=== PATIENT | female | born 1960 | race Caucasian/White ===

== ENCOUNTER 2016-05-20 15:43 | Emergency (ER) | payer OTHER ==
[2016-05-20 15:49] VITALS: BP 96/80
[2016-05-20] MEDS ORDERED: ASPIRIN 81 MG TABLET, CHEWABLE PO ONE (15:53)
[2016-05-20] MEDS ORDERED: ONDANSETRON 4 MG TAB.RAPDIS PO ONE (15:56)
--- NOTE | 2016-05-20 15:59 | ER Document Report ---
ED Medical Screen (RME) - General Stated Complaint: CHEST PAIN,NAUSEA Time seen by provider: 15:56 Mode of Arrival: Wheelchair Information source: Patient - HPI Patient complains to provider of: CHEST PAIN Onset: Just prior to arrival Onset/Duration: Sudden Context: ACUTE ONSET MIDSTERNAL CHEST PAIN, + NAUSEA. SEEN BY PCP THIS AM FOR COUGH. Quality of pain: Pressure Severity: Severe Pain Level: 5 Associated Symptoms: Chest pain, Cough (productive), Hurts to breath, Nausea, Shortness of breath Exacerbated by: Denies Relieved by: Denies Similar symptoms previously: Yes Recently seen / treated by doctor: Yes - Related Data Smoking: Cigarettes Allergies/Adverse Reactions: No Known Allergies Allergy (Verified 05/20/16 15:52) Past Medical History - Immunizations Hx Diphtheria, Pertussis, Tetanus Vaccination: No Physical Exam - Vital signs Vitals: Temp Pulse Resp BP Pulse Ox 97.4 F 64 22 H 96/80 L 97 05/20/16 15:47 05/20/16 15:47 05/20/16 15:47 05/20/16 15:47 05/20/16 15:47 Course - Vital Signs Vital signs: Temp Pulse Resp BP Pulse Ox 97.4 F 64 22 H 96/80 L 97 05/20/16 15:47 05/20/16 15:47 05/20/16 15:47 05/20/16 15:47 05/20/16 15:47
[2016-05-20 16:18] LABS: ABSOLUTE BASOPHILS # (AUTO) 0.1 10^3/uL (0.0-0.2); ABSOLUTE EOSINOPHILS # (AUTO) 0.4 10^3/uL (0.0-0.6); ABSOLUTE LYMPHOCYTES (AUTO) 5.8 10^3/uL (0.5-4.7); ABSOLUTE MONOCYTES (AUTO) 1.4 10^3/uL (0.1-1.4); ABSOLUTE NEUT (AUTO) 7.1 10^3/uL (1.7-8.2); BASOPHILS % (AUTO) 0.5 % (0-2); EOSINOPHILS % (AUTO) 2.6 % (0-6); HEMATOCRIT 43.6 % (36.0-47.0); HEMOGLOBIN 14.7 g/dL (12.0-15.5); HGB HCT DIFFERENCE 0.5; LYMPHOCYTES % (AUTO) 39.1 % (13-45); MEAN CORPUSCULAR HEMOGLOBIN 30.9 pg (27.0-33.4); MEAN CORPUSCULAR HGB CONC 33.8 g/dL (32.0-36.0); MEAN CORPUSCULAR VOLUME 91 fl (80-97); MONOCYTES % (AUTO) 9.8 % (3-13); RED BLOOD COUNT 4.77 10^6/uL (3.72-5.28); RED CELL DISTRIBUTION WIDTH 13.4 % (11.5-14.0); WHITE BLOOD COUNT 14.8 10^3/uL (4.0-10.5)
[2016-05-20 16:31] LABS: ALANINE AMINOTRANSFERASE 36 U/L (9-52); ALBUMIN 4.1 g/dL (3.5-5.0); ALKALINE PHOSPHATASE 101 U/L (38-126); ANION GAP 15 (5-19); ASPARTATE AMINO TRANSFERASE 25 U/L (14-36); BILIRUBIN,TOTAL 0.5 mg/dL (0.2-1.3); BLOOD UREA NITROGEN 23 mg/dL (7-20); CALCIUM 9.7 mg/dL (8.4-10.2); CARBON DIOXIDE 27 mmol/L (22-30); CHLORIDE 104 mmol/L (98-107); CREATINE KINASE 85 U/L (30-135); CREATININE RESULT 0.71 mg/dL (0.52-1.25); GLUCOSE 130 mg/dL (75-110); POTASSIUM 4.1 mmol/L (3.6-5.0); SODIUM 145.7 mmol/L (137-145); TOTAL PROTEIN 7.2 g/dL (6.3-8.2)
[2016-05-20 16:42] LABS: CREATINE KINASE MB 2.44 ng/mL (<4.55)
[2016-05-20 16:43] LABS: TROPONIN I < 0.012 ng/mL
--- NOTE | 2016-05-20 17:13 | ER Document Report ---
Addendum entered and electronically signed by ANABEL KUNZ FNP 08:04: Impression/Plan Impression: DX AMA WORKING DX CHEST PAIN Addendum entered and electronically signed by ANABEL KUNZ FNP 07:56: Impression/Plan Impression: DX: JENNIFER working FRANCISCA chest pain Original Note: ED Cardiac - General Chief Complaint: Chest Pain > 30 Stated Complaint: CHEST PAIN,NAUSEA Mode of Arrival: Wheelchair Notes: This is a 55-year-old female presented to the emergency room today stating that she had pain in the center of her chest 10 out of 10 initiated about an hour and 15 minutes ago and just resolved about 15 minutes ago while waiting in the department to see her provider the nursing staff came over to the other side and asked me to see this patient because the patient was stating that she may want to leave. - Related Data Allergies/Adverse Reactions: No Known Allergies Allergy (Verified 05/20/16 15:52) Past Medical History - General Information source: Patient - Social History Smoking Status: Current Every Day Smoker Chew tobacco use (# tins/day): Yes Frequency of alcohol use: Social Drug Abuse: None Lives with: Family Family History: CAD, Hypertension Patient has suicidal ideation: No Patient has homicidal ideation: No Renal/ Medical History: Denies: Hx Peritoneal Dialysis - Immunizations Hx Diphtheria, Pertussis, Tetanus Vaccination: No Review of Systems - Review of Systems Constitutional: No symptoms reported EENT: No symptoms reported Cardiovascular: Chest pain - States the pain was 10 out of 10 in the center of her chest that it was not associated with diaphoresis or shortness of breath. Was no change with exertion. Respiratory: No symptoms reported Gastrointestinal: No symptoms reported Genitourinary: No symptoms reported Female Genitourinary: No symptoms reported Musculoskeletal: No symptoms reported Skin: No symptoms reported Hematologic/Lymphatic: No symptoms reported Neurological/Psychological: No symptoms reported Physical Exam - Vital signs Vitals: Temp Pulse Resp BP Pulse Ox 97.4 F 64 22 H 96/80 L 97 05/20/16 15:47 05/20/16 15:47 05/20/16 15:47 05/20/16 15:47 05/20/16 15:47 Interpretation: Normal - General General appearance: Appears well, Alert - HEENT Head: Normocephalic, Atraumatic Eyes: Normal Pupils: PERRL - Respiratory Respiratory status: No respiratory distress Chest status: Nontender Breath sounds: Normal Chest palpation: Normal - Cardiovascular Rhythm: Regular Heart sounds: Normal auscultation Murmur: No Friction rub: No Gallop: None auscultated - Abdominal Inspection: Normal Distension: No distension Bowel sounds: Normal Tenderness: Nontender Organomegaly: No organomegaly - Back Back: Normal, Nontender - Extremities General upper extremity: Normal inspection, Nontender, Normal color, Normal ROM , Normal temperature General lower extremity: Normal inspection, Nontender, Normal color, Normal ROM , Normal temperature, Normal weight bearing. No: Neelam's sign - Neurological Neuro grossly intact: Yes Cognition: Normal Orientation: AAOx4 [place] Coma Scale Eye Opening: Spontaneous [place] Coma Scale Verbal: Oriented [place] Coma Scale Motor: Obeys Commands [place] Coma Scale Total: 15 Speech: Normal Motor strength normal: LUE, RUE, LLE, RLE Sensory: Normal - Psychological Associated symptoms: Normal affect, Normal mood - Skin Skin Temperature: Warm Skin Moisture: Dry Skin Color: Normal Course - Vital Signs Vital signs: Temp Pulse Resp BP Pulse Ox 97.4 F 64 22 H 96/80 L 97 05/20/16 15:47 05/20/16 15:47 05/20/16 15:47 05/20/16 15:47 05/20/16 15:47 - Laboratory Result Diagrams: 05/20/16 16:05 05/20/16 16:05 Laboratory results interpreted by me: 05/20/16 05/20/16 16:05 16:05 WBC 14.8 H Absolute Lymphocytes 5.8 H Sodium 145.7 H BUN 23 H Glucose 130 H - EKG Interpretation by Ar EKG shows normal: Sinus rhythm Rate: Normal Rhythm: NSR - Transfer of Care Notes: 05/20/16 17:09 Patient and I had a long talk regarding 10 out of 10 chest pain in the center of her chest the fact that she is slightly overweight smokes every day and is 55 years old and it was discussed that my letting her go home without considering the fact that this could be cardiac chest pain would basically be malpractice. I strongly suggested she stay for evaluation including some cardiac markers x-rays and other testing she stated that she had done this here once before approximately a year ago she stayed overnight in the hospital they told her that it was not her heart and that she was okay and she did not want to invest that kind of time again. I again informed the patient that I completely understood and stated that this might in fact be pain arising from a recent diagnosis of bronchitis just this morning and that it was possible however with the risk factors in mind I truly felt that it would be prudent to at least get some preliminary studies to rule out cardiac disease the patient flatly refused and insisted that she sign out AMA. I didn't bite the patient come back and absolutely any time told her that we would be very happy to take care of her told her that she should seek medical attention with her doctor if she did not feel as though she wanted to do that in the emergency room that she should call 911 and come back immediately if she changed her mind and that I still felt it would be very appropriate for her to have a cardiac evaluation patient was very receptive to that very pleasant but still insisted that she sign out and didn't ask sign out AMA and there was a nurse as a witness to this conversation Discharge - Discharge Disposition: AGAINST MEDICAL ADVICE Additional Instructions: Patient signed out AGAINST MEDICAL ADVICE was told that she should return absolutely immediately for any change or worsening condition including calling 911 immediately for an ambulance she was advised to please follow up with her regular doctor if she preferred not to be seen in the emergency room for such a thing and again was invited to stay here in the department for appropriate cardiac evaluation patient was advised that not staying in the hospital could lead to worsening condition up to and including .
--- NOTE | 2016-05-21 09:24 | EKG REPORT ---
SEVERITY:- OTHERWISE NORMAL ECG - SINUS ARRHYTHMIA, RATE [id number] : Confirmed by: Dameon Cano 21-May-2016 09:22:44
== END 2016-05-20 17:20 | disposition left against medical advice (07) ==
LOC: ER 15:43
DX: R07.9 Chest pain, unspecified (principal); Z53.20 Procedure and treatment not carried out because of patient's decision for unspecified reasons; J40 Bronchitis, not specified as acute or chronic; F17.200 Nicotine dependence, unspecified, uncomplicated; E66.3 Overweight; Z68.36 Body mass index [BMI] 36.0-36.9, adult
CPT/HCPCS: 93005; 99284; 36415; 82553; 82550; 85025; 80053; 84484; 93010; S0119